=== PATIENT | female | born 1950 | race Caucasian/White ===

== ENCOUNTER 2017-01-11 14:10 | Emergency (ER) | payer MEDICARE, OTHER ==
[~2017-01-11] VITALS: Ht 162.6 cm; Wt 89.0 kg
[2017-01-11 14:35] VITALS: Ht 162.6 cm; Wt 89.0 kg
[2017-01-11] MEDS ORDERED: ACETAMINOPHEN 500 MG TAB PO STA (14:52)
[2017-01-11] MEDS ORDERED: ACET500C5 PO (15:38)
[2017-01-11] MEDS ORDERED: TRAM50TA2 PO (15:38)
--- NOTE | 2017-01-11 15:51 | ERD ---
ER Documentation Chief Complaint Date/Time DATE: 01/11/17 TIME: 15:49 Chief Complaint FELL HAS LEWFT KNEE/ANKLE PAIN HPI 66-year-old female fell a few days ago and complains of pain in her left knee and left ankle. She is able to ambulate. She denies any bleeding, redness, fevers. She has a Swelling or shortness of breath. ROS All systems reviewed and are negative except as per history of present illness. Medications Home Meds Active Scripts Tramadol HCl (Tramadol HCl) 50 Mg Tablet, 50 MG PO Q4 Y for PAIN, #15 TAB Prov:LEON ARMSTRONG MD 01/11/17 Acetaminophen* (Tylophen*) 500 Mg Capsule, 1 CAP PO Q6H Y for PAIN AND OR ELEVATED TEMP, #20 CAP Prov:LEON ARMSTRONG MD 01/11/17 PMhx/Soc Medical and Surgical Hx: pt denies Surgical Hx Anesthesia Reaction: No Hx Neurological Disorder: No Hx Respiratory Disorders: No Hx Cardiac Disorders: No Hx Psychiatric Problems: No Hx Miscellaneous Medical Probl: No Hx Alcohol Use: No Hx Substance Use: No Hx Tobacco Use: No Smoking Status: Never smoker Physical Exam Vitals Vital Signs Date Time Temp Pulse Resp B/P Pulse Ox O2 Delivery O2 Flow Rate FiO2 01/11/17 14:35 98.2 97 20 136/90 99 Physical Exam Const: []Alert, [id number], morbidly obese. Head: Atraumatic Eyes: Normal Conjunctiva ENT: Normal External Ears, Nose and Mouth. Neck: Full range of motion..~ No meningismus. Resp: Clear to auscultation bilaterally Cardio: Regular rate and rhythm, no murmurs Abd: Soft, non tender, non distended. Normal bowel sounds Skin: No petechiae or rashes Back: No midline or flank tenderness Ext: No cyanosis, or edema. There is mild generalized tenderness in the left knee joint without erythema or effusion. There is no calf swelling or Homans sign. There is mild tenderness around the left ankle joint without deformities, erythema or foot tenderness. There is no restricted range of motion or weakness. Neur: Awake and alert Psych: Normal Mood and Affect Results 24 hrs Current Medications Medications (Trade) Dose Ordered Sig/Natividad Route PRN Reason Start Time Stop Time Status Last Admin Dose Admin Acetaminophen (Tylenol Tab) 500 mg ONCE STAT PO 01/11/17 14:52 01/11/17 14:54 DC 01/11/17 15:09 Procedures/MDM X-ray left knee 3V Interpreted by me: Bones: No fracture Joints: No dislocation Foreign body: None. Impression-degenerative changes left knee without fracture dislocation X-ray left ankle 3V Interpreted by me: Bones: [No fracture] Joints: No dislocation. Impression-no acute findings on left ankle x-ray. Patient presents with left knee pain left ankle pain likely exacerbation of arthritic pain without evidence of fracture, dislocation, deficits, bacterial infection. There is no evidence to suggest DVT. Patient will be treated with an Quang bandage of the left knee and ankle. Patient was neurovascular intact after the Quang bandage. She will be discharged home the prescription Tylenol and tramadol and primary care and orthopedic follow-up. The patient was stable with no new complaints during the ER course. Clinically, there is no current evidence to suggest meningitis, sepsis, acute abdomen, pneumonia, acute coronary syndrome, pulmonary embolism, or any other emergent condition appearing to require further evaluation or hospitalization. The patient should certainly return for any new or worsening symptoms per the aftercare instructions. They should otherwise follow-up with her primary care doctor for reevaluation this week. Departure Diagnosis: Primary Impression: Ankle sprain Encounter type: initial encounter Involved ligament of ankle: unspecified ligament Laterality: left Qualified Code: S93.402A - Sprain of left ankle, unspecified ligament, initial encounter Additional Impressions: Knee sprain Encounter type: initial encounter Involved ligament of knee: unspecified ligament Laterality: left Qualified Code: S83.92XA - Sprain of left knee, unspecified ligament, initial encounter Fall Encounter type: initial encounter Qualified Code: W19.XXXA - Fall, initial encounter Condition: Stable Patient Instructions: Sprain, Ankle, With X-Ray, Knee Sprain, Osteoarthritis Referrals: KAY LEMUS MD, HRAIR E MD Additional Instructions: NO HAY FRACTURA . TIENE ARTRITIS. Cheque otro vez con lynn doctor primario en el proximo iyer or regresa para mas o nueva simptomas.Va al lynn doctor/ specialista para mas evaluacon en el proximo semana. posiblemente necesita autorizado de lynn doctor primario para specialista. Regresa para fiebre, o mas o nueva simptomas. LEON ARMSTRONG MD Jan 11, 2017 15:51
--- NOTE | 2017-01-11 16:25 | RADRPT ---
PROCEDURE: XR Knee. CLINICAL INDICATION: Fall, pain TECHNIQUE: 3 views of the left knee are available for review. COMPARISON: None available FINDINGS: No acute fracture or dislocation is identified. There is moderate tricompartmental joint space narr owing as well as tricompartmental osteophyte formation. There is also lateral subluxation of the ti cyrus relative to the femur, likely degenerative in nature. No suprapatellar knee joint effusion is i dentified. There is no radiodense foreign body. IMPRESSION: 1. No evidence of acute fracture or dislocation. 2. Moderate tricompartmental osteoarthritic degenerative changes, as above. RPTAT: PP .Naldo Mitchell MD, Date Time Electronically viewed and signed by .Naldo Mitchell MD, on 01/11/2017 16:24 .R/
--- NOTE | 2017-01-11 16:26 | RADRPT ---
PROCEDURE: XR Ankle. CLINICAL INDICATION: Fall, pain TECHNIQUE: 3 views of the left ankle were performed. COMPARISON: None. FINDINGS: Lateral ankle soft tissue swelling is noted. No acute fracture or dislocation is identified. There is no radiodense foreign body. Bony mineralization is normal. Inferior calcaneal spur is incident ally noted. IMPRESSION: 1. No evidence of acute fracture or dislocation. 2. Lateral ankle soft tissue swelling. RPTAT: PP .Naldo Mitchell MD, MD Date Time Electronically viewed and signed by .Naldo Mitchell MD, on 01/11/2017 16:25 .R/
[2017-01-11 16:39] VITALS: BP 135/65; PULSE 88; RESP 20; TEMP 98.4
== END 2017-01-11 16:30 | disposition home or self-care (01) ==
LOC: FTE 14:10
DX: S93.402A Sprain of unspecified ligament of left ankle, initial encounter (principal); S83.92XA Sprain of unspecified site of left knee, initial encounter; E66.01 Morbid (severe) obesity due to excess calories; W19.XXXA Unspecified fall, initial encounter; Y92.9 Unspecified place or not applicable; Z68.33 Body mass index [BMI] 33.0-33.9, adult
CPT/HCPCS: 73562; 73610